=== PATIENT | female | born 1965 | race Caucasian/White ===

== ENCOUNTER 2017-01-21 18:31 | Inpatient (IN) ==
[2017-01-21] MEDS ORDERED: 0.9 % Sodium Chloride 1,000 ML IVC ONE (19:12)
[2017-01-21] MEDS ORDERED: Ondansetron 4 MG/2 ML VIAL IVP ONE (19:12)
[2017-01-21] MEDS ORDERED: Hyoscyamine 0.5 MG/ML MLS SQ ONE (19:13)
--- NOTE | 2017-01-21 19:31 | Emergency Department Note ---
Disposition Clinical Impression: Choledocholithiasis, Diastasis recti Disposition: Admitted As Inpatient Condition: Fair Time of Disposition: 00:24 Abdominal Pain HPI - General Chief Complaint: ED Abdominal Pain Stated Complaint: abd pain, nausea Time Seen by Provider: 01/21/17 19:11 Source: patient Mode of arrival: ambulatory Limitations: no limitations Nursing Notes Reviewed: Yes Vital Signs Reviewed: Yes - History of Present Illness HPI Narrative: 51-year-old Female presents to emergency department complaining of abdominal pain. She has never had any abdominal surgeries. Said today she noticed that she felt she had a hernia in the center of her belly that is worsening. For the last 2 weeks she has noticed increased bloating. She was seen 2 weeks ago at [facility] due to the bloating but she did not having the hernia at this time. She notes that she has been nauseous for the last day. She has had no vomiting. She is having bowel movements as well as passing gas. She had a normal bowel movement approximately 34 hours ago. So is nondiarrheal and there is no constipation or hard stools. There is no block. In it. Patient's had no abdominal surgeries. Patient not having any other complaints including chest pain, shortness of breath, headache, blurry vision, neck pain, back pain, pain with urination, change in bowel movements compared to the inguinal area and some generalized weakness, fevers. Pain Scale: 6 - Related Data Allergies Allergy/AdvReac Type Severity Reaction Status Date / Time Penicillins AdvReac Rash Verified 01/21/17 18:44 Review of Systems: 10 point review of systems done and negative unless otherwise stated in history of present illness. All systems ED: reviewed and negative except as stated. Review of Systems: As Per HPI Abdominal Pain PMH - Past Medical History Medical history: Reports: diabetes, hypertension Female Surgical History: Reports: no surgical history Psychiatric history: Reports: depression - Social History Smoking status: Current every day smoker Alcohol use: Reports: rarely Drug use: Reports: none Physical Exam - General Limitations: no limitations General appearance: alert, in no apparent distress - Head Head exam: atraumatic, normocephalic, normal inspection - Eye Eye exam: Present: normal appearance, PERRL, EOMI - ENT ENT exam: normal exam, normal oropharynx, mucous membranes moist - Neck Neck exam: Present: normal inspection - Chest Chest inspection: Present: normal inspection, symmetric chest wall rise - Respiratory Respiratory exam: Present: normal lung sounds bilaterally - Cardiovascular Cardiovascular exam: Present: regular rate, normal rhythm, normal heart sounds - Abdominal Exam Abdominal exam: Present: soft, tenderness, normal bowel sounds. Absent: distention, guarding, rebound, rigidity Abdominal tenderness: Present: diffuse, moderate - Extremities Exam Extremities exam: Present: normal inspection, full ROM. Absent: tenderness, pedal edema - Expanded Lower Extremity Exam Neurovascular/Tendon exam: Absent: motor deficit, sensory deficit, tendon deficit Gait: observed and normal - Back Exam Back exam: Present: normal inspection, full ROM. Absent: CVA tenderness (R), CVA tenderness (L) - Neurological Exam Neurological exam: Present: alert, oriented X3 - Skin Skin exam: Present: warm, dry, intact, normal color Course Course Narrative: 51-year-old female presents to her abdominal pain. We will do CBC, CMP, lipase , urinalysis. We will also do CT the abdomen and pelvis with contrast. Patient okay with this plan. We will give patient IV fluids as well as Levsin and Zofran for her pain and nausea. - Reevaluation(s) Reevaluation #1: Patient reevaluated and is having pain we will give her Dilaudid as well as Ativan for her anxiety. Patient's this plan. Her CT did come back showing calcified gallbladder as well as adnexal masses bilaterally. We will get a transvaginal ultrasound for possible ovarian torsion as well as all bladder study for possible acute cholecystitis. Or hydrops gallbladder. Vital Signs Temperature 98.3 F 01/21/17 18:39 Pulse Rate 91 01/21/17 18:39 Respiratory Rate 16 01/21/17 18:39 Blood Pressure 132/88 01/21/17 18:39 O2 Sat by Pulse Oximetry 97 01/21/17 18:39 Temperature 97.6 F 01/22/17 04:03 Pulse Rate 65 01/22/17 04:03 Respiratory Rate 14 01/22/17 04:03 Blood Pressure 91/64 01/22/17 04:03 O2 Sat by Pulse Oximetry 93 01/22/17 04:03 Oxygen Delivery Oxygen Delivery Room Air Abdominal Pain - [facility] Narrative Medical decision making narrative: 51-year-old female presents to the emergency department complaining of abdominal pain. She was thing that she had a hernia after evaluating this this looks more like a diastases. We did do CT her abdomen belly this came back showing calcified gallbladder as well as bilateral adnexal masses. We did get a ultrasound transvaginally the pelvis showed ovarian cyst. We also got ultrasound of the gallbladder. This showed a 1.6 cm most likely impacted gallstone in the neck of the gallbladder. Due to patient's pain which we are treating with Levsin and Dilaudid as well as impacted stone we filled GI consult as well as possible surgical consult was needed so patient is going to be admitted to the hospital. I spoke with the hospital Dr. Jordan agreed to admit the patient to their service. This plan was discussed with the patient and she agrees with this. Patient is now admitted to the hospitalist service in stable condition. Abdomen/Pelvis CT 01/21/17 19:13 IMPRESSION: 1. Diffuse fatty infiltration of the liver but no focal disease. Partly calcified gallbladder wall but no evidence of cholelithiasis or acute cholecystitis. 2. Normal appendix. 3. Bilateral adnexal cysts as described above. D/ / 01/21/2017 20:52:36 Ainsley Bauer MD / bee Interpreting Provider: Ainsley Bauer MD Abdomen/Pelvis/Transvag US 01/21/17 21:12 IMPRESSION: Unremarkable pelvic ultrasound. Normal Doppler flow within the ovaries. D/ / Nas Wright / Nas Wright Interpreting Provider: Nas Wright Gallbladder Ultrasound 01/21/17 21:12 IMPRESSION: There is a 1.65 cm gallstone in the gallbladder neck accounting for the rim calcification noted on the prior CT study. This stone may be impacted. D/ / Nicholas Zuñiga MD / Nicholas Zuñiga MD Interpreting Provider: Nicholas Zuñiga MD - Medical Records Medical records reviewed: Yes I reviewed the patient's medical records. - Lab Data Lab results reviewed: Yes I reviewed the patient's lab results. Result diagrams: 01/22/17 05:03 01/22/17 05:03 Lab Results 01/21/17 01/21/17 01/21/17 Range/Units 19:33 19:33 19:33 WBC 9.7 (4.3-11.1) K/mcL RBC 5.10 H (3.82-4.97) M/mcL Hgb 13.2 (11.5-15.4) g/dL Hct 40.2 (35.3-44.9) % MCV 78.8 L (83.0-100.0) fL MCH 25.9 L (28.0-33.3) pg MCHC 32.8 (31.6-35.5) g/dL RDW 16.6 H (11.5-14.5) % Plt Count 306 (140-400) K/mcL MPV 9.4 (9.4-12.4) fL Immature Gran % 0.6 (0-4) % Seg Neutrophils % 59.7 % Lymphocytes % 32.0 % Monocytes % 4.9 % Eosinophils % 2.4 % Basophils % 0.4 % Neutrophils # 5.8 (1.6-8.9) K/mcL Lymphocytes # 3.1 (0.6-4.6) K/mcL Monocytes # 0.5 (0.0-1.3) K/mcL Eosinophils # 0.2 (0.0-0.6) K/mcL Basophils # 0.0 (0.0-0.2) K/mcL Sodium 133 L (136-145) mEq/L Potassium 4.0 (3.5-4.5) mEq/L Chloride 101 (98-109) mEq/L Carbon Dioxide 19 (19-29) mEq/L BUN 15 (7-20) mg/dL Creatinine 0.71 (0.57-1.11) mg/dL Est GFR ( Amer) > 60 (> 60) Est GFR (Non-Af Amer) > 60 (> 60) BUN/Creatinine Ratio 21 (6-26) Glucose 217 H (70-99) mg/dL Calculated Osmolality 283 (280-300) Lactic Acid 2.1 (0.5-2.2) mmol/L Calcium 9.7 (8.6-10.8) mg/dL Total Bilirubin 0.2 (0.2-1.2) mg/dL Direct Bilirubin < 0.1 (0.0-0.5) mg/dL Indirect Bilirubin TNP AST 14 (5-34) Units/L ALT 16 (0-55) Units/L Alkaline Phosphatase 85 (38-126) Units/L Serum Total Protein 7.6 (6.0-8.3) g/dL Albumin 3.4 L (3.5-5.0) g/dL Globulin 4.2 H (2.4-3.5) g/dL Albumin/Globulin Ratio 0.8 L (1.1-2.2) Lipase 42 (8-78) Units/L Urine Color (Yellow) Urine Clarity (Clear) Urine pH (5.0-8.0) pH Units Ur Specific [place] (1.010-1.025) Urine Protein (Neg-Trace) mg/dL Urine Glucose (UA) (Normal) mg/dL Urine Ketones (Negative) mg/dL Urine Blood (Negative) Urine Nitrite (Negative) Urine Bilirubin (Negative) Urine Urobilinogen (Normal) mg/dL Ur Leukocyte Esterase (Negative) Ur Culture Indicated? (NO) 01/21/17 Range/Units 19:43 WBC (4.3-11.1) K/mcL RBC (3.82-4.97) M/mcL Hgb (11.5-15.4) g/dL Hct (35.3-44.9) % MCV (83.0-100.0) fL MCH (28.0-33.3) pg MCHC (31.6-35.5) g/dL RDW (11.5-14.5) % Plt Count (140-400) K/mcL MPV (9.4-12.4) fL Immature Gran % (0-4) % Seg Neutrophils % % Lymphocytes % % Monocytes % % Eosinophils % % Basophils % % Neutrophils # (1.6-8.9) K/mcL Lymphocytes # (0.6-4.6) K/mcL Monocytes # (0.0-1.3) K/mcL Eosinophils # (0.0-0.6) K/mcL Basophils # (0.0-0.2) K/mcL Sodium (136-145) mEq/L Potassium (3.5-4.5) mEq/L Chloride (98-109) mEq/L Carbon Dioxide (19-29) mEq/L BUN (7-20) mg/dL Creatinine (0.57-1.11) mg/dL Est GFR ( Amer) (> 60) Est GFR (Non-Af Amer) (> 60) BUN/Creatinine Ratio (6-26) Glucose (70-99) mg/dL Calculated Osmolality (280-300) Lactic Acid (0.5-2.2) mmol/L Calcium (8.6-10.8) mg/dL Total Bilirubin (0.2-1.2) mg/dL Direct Bilirubin (0.0-0.5) mg/dL Indirect Bilirubin AST (5-34) Units/L ALT (0-55) Units/L Alkaline Phosphatase (38-126) Units/L Serum Total Protein (6.0-8.3) g/dL Albumin (3.5-5.0) g/dL Globulin (2.4-3.5) g/dL Albumin/Globulin Ratio (1.1-2.2) Lipase (8-78) Units/L Urine Color Yellow (Yellow) Urine Clarity Clear (Clear) Urine pH 6.0 (5.0-8.0) pH Units Ur Specific [place] > 1.030 H (1.010-1.025) Urine Protein Negative (Neg-Trace) mg/dL Urine Glucose (UA) >=1000 H (Normal) mg/dL Urine Ketones Negative (Negative) mg/dL Urine Blood Negative (Negative) Urine Nitrite Negative (Negative) Urine Bilirubin Negative (Negative) Urine Urobilinogen Normal (Normal) mg/dL Ur Leukocyte Esterase Negative (Negative) Ur Culture Indicated? NO (NO) - Radiology Data Radiology results reviewed: Yes I reviewed the patient's radiology results. Attestation Statement - Attestation Attestation: I examined this patient and my medical decision-making was reviewed with the Resident Physician. I agree with the documented findings, disposition and treatment plan as described except to the extent set forth below. Findings consistent with possible impacted stone. We will admit for GI consultation.
[2017-01-21 19:42] LABS: Basophils % 0.4 %; Eosinophils # 0.2 K/mcL (0.0-0.6); Eosinophils % 2.4 %; Hematocrit 40.2 % (35.3-44.9); Hemoglobin 13.2 g/dL (11.5-15.4); Immature Granulocytes % 0.6 % (0-4); Lymphocytes # 3.1 K/mcL (0.6-4.6); Mean Corpuscular HGB Conc 32.8 g/dL (31.6-35.5); Mean Corpuscular Hemoglobin 25.9 pg (28.0-33.3); Mean Corpuscular Volume 78.8 fL (83.0-100.0); Mean Platelet Volume 9.4 fL (9.4-12.4); Monocytes # 0.5 K/mcL (0.0-1.3); Monocytes % 4.9 %; Neutrophils # 5.8 K/mcL (1.6-8.9); Platelet Count 306 K/mcL (140-400); Red Cell Distribution Width 16.6 % (11.5-14.5); Segmented Neutrophils % 59.7 %
[2017-01-21 19:55] LABS: Bilirubin,Urine Negative (Negative); Blood,Urine Negative (Negative); Clarity,Urine Clear (Clear); Color,Urine Yellow (Yellow); Glucose,Urine (UA) >=1000 mg/dL (Normal); Ketones,Urine Negative (Negative); Leukocyte Esterase,Urine Negative (Negative); Nitrite,Urine Negative (Negative); Protein,Urine Negative (Neg-Trace); Specific Gravity,Urine > 1.030 (1.010-1.025); Urobilinogen,Urine Normal (Normal)
[2017-01-21 19:56] LABS: Alanine Aminotransferase 16 Units/L (0-55); Albumin 3.4 g/dL (3.5-5.0); Albumin/Globulin Ratio 0.8 (1.1-2.2); Alkaline Phosphatase 85 Units/L (38-126); Aspartate Amino Transferase 14 Units/L (5-34); BUN/Creatinine Ratio 21 (6-26); Bilirubin,Direct < 0.1 mg/dL (0.0-0.5); Bilirubin,Total 0.2 mg/dL (0.2-1.2); Blood Urea Nitrogen 15 mg/dL (7-20); Calcium 9.7 mg/dL (8.6-10.8); Carbon Dioxide 19 mEq/L (19-29); Chloride 101 mEq/L (98-109); Globulin 4.2 g/dL (2.4-3.5); Glucose 217 mg/dL (70-99); Lipase 42 Units/L (8-78); Osmolality,Calculated 283 (280-300); Sodium 133 mEq/L (136-145); Total Protein 7.6 g/dL (6.0-8.3); eGFR For African Americans > 60 (> 60); eGFR For Non-African Americans > 60 (> 60)
[2017-01-21] MEDS ORDERED: *HR* LORazepam 2 MG/ML VIAL IVP ONE (20:48)
[2017-01-21] MEDS ORDERED: *HR* HYDROmorphone (PF) 1 MG/ML SYRINGE IVP ONE (20:48)
[2017-01-22] MEDS ORDERED: D5% in Water 1,000 ML IVC PRN ×3 (00:34→18:44)
[2017-01-22] MEDS ORDERED: Dextrose Gel 15 GM PO PRN ×4 (00:34→18:44)
[2017-01-22] MEDS ORDERED: Naloxone 0.4 MG/ML INJ IVP PRN ×2 (00:34→18:44)
[2017-01-22] MEDS ORDERED: *HR* Dextrose 50 % in Water (Syg) 50 ML SYRINGE IVP PRN ×2 (00:34→18:44)
--- NOTE | 2017-01-22 00:43 | Internal Med History&Physical ---
Date of Encounter: 01/22/17 Time of Encounter: 00:40 Assessment and Plan (1) Cholelithiasis Current visit: Yes Status: Acute NPO , IVf, IV pain med Consult surgery in the a.m for eval check LFT check EKG Qualifiers: Qualified Code(s): K80.20 - Calculus of gallbladder without cholecystitis without obstruction (2) HTN (hypertension) Current visit: Yes Status: Acute continue med Qualifiers: Qualified Code(s): I10 - Essential (primary) hypertension (3) DMII (diabetes mellitus, type 2) Current visit: Yes Status: Acute hold oral agents, ISS for now Qualifiers: Diabetes mellitus complication status: without complication Qualified Code( s): E11.9 - Type 2 diabetes mellitus without complications (4) Choledocholithiasis Current visit: Yes Status: Acute Internal Medicine - H&P: HPI Chief complaint: abdo pain History of present illness: Ms. Loomis is a 51 year old female who presents with acute on subacute onset of abdominal symptoms. Found impacted gallstones in the GB neck. She reports several months of non-specific bloating symptoms associated with intermittent nausea and feeling ill. She went to [place] [facility] at that time and had a negative CT imaging. Today, symptoms got worse. She got out of bed and was bending over doing laundry which aggravated the pain. Associated nausea and some emesis. She had a small bowl of chilli which she tolerated for dinner. Discomfort along the epigastric region , rates it as a burning, like a band tightness 6/10. Some associated nausea US/US gall bladder IMPRESSION: There is a 1.65 cm gallstone in the gallbladder neck accounting for the rim calcification noted on the prior CT study. This stone may be impacted. US/US pelvis transvag dopp non ob IMPRESSION: Unremarkable pelvic ultrasound. Normal Doppler flow within the ovaries. CT/CT abd pelvis w iv no oral IMPRESSION: 1. Diffuse fatty infiltration of the liver but no focal disease. Partly calcified gallbladder wall but no evidence of cholelithiasis or acute cholecystitis. 2. Normal appendix. 3. Bilateral adnexal cysts as described above. Past Med Surg Social Fam HX - Past Medical History Medical history: diabetes, hypertension Psychiatric history: depression - Past Surgical History Surgical History: no surgical history - Social History Smoking Status: Current every day smoker Smokeless Tobacco Status: No Alcohol use: rarely Drug use: none - Additional Family History Additional family history: HTN Internal Medicine - H&P: Meds 3 Allergy/AdvReac Type Severity Reaction Status Date / Time Penicillins AdvReac Rash Verified 01/21/17 18:44 All Systems PM: A 10-system review of systems was performed and is negative for pertinent findings except as documented above in the HPI. Review of systems: ROS 14 point review of systems reviewed as best as possible given presentation. Pertinent positive or negative as per HPI or otherwise reviewed as negative - Constitutional Vitals: Temp Pulse Resp BP Pulse Ox 98.3 F 89 12 130/63 95 01/21/17 18:39 01/21/17 22:57 01/21/17 22:57 01/21/17 22:57 01/21/17 22:57 Exam: General - AAO x 3 Psych - Appropriate affect/speech. No agitation Eyes - CHRISTOFER. Eye lids intact. No scleral icterus Neuro - No gross peripheral or central neuro deficits with intact CN 2-12 exam on inspection Heart - Sinus. RRR. S1 and S2 present. No added HS/murmurs appreciated. No elevated JVD appreciated. Lung - Adequate air entry b/l, No crackles/wheezes appreciated GI - Epigastric tenderness. No hepatosplenomegaly/ascites. BS+ - No CVA/suprapubic tenderness or palpable bladder distension Skin - Intact. No rash/petechiae/ecchymosis. Warm extremities MSK - Joints with normal ROM. No joint swellings Internal Med - H&P Results - Labs CBC & Chem 7: 01/21/17 19:33 01/21/17 19:33
[2017-01-22] MEDS: Ringers Solution, Lactated 1,000 ML IVC SCH ×2 (01:49→11:06)
[2017-01-22] MEDS: Ondansetron 4 MG/2 ML VIAL IVP PRN ×2 (01:49→11:16)
[2017-01-22] MEDS: *HR* HYDROmorphone (PF) 1 MG/ML SYRINGE IVP PRN ×6 (02:18→22:11)
[2017-01-22 05:50] LABS: Basophils % 0.4 %; Eosinophils # 0.2 K/mcL (0.0-0.6); Eosinophils % 2.9 %; Hematocrit 39.1 % (35.3-44.9); Hemoglobin 12.3 g/dL (11.5-15.4); Immature Granulocytes % 0.5 % (0-4); Lymphocytes # 3.3 K/mcL (0.6-4.6); Lymphocytes % 41.3 %; Mean Corpuscular HGB Conc 31.5 g/dL (31.6-35.5); Mean Corpuscular Hemoglobin 24.9 pg (28.0-33.3); Mean Corpuscular Volume 79.1 fL (83.0-100.0); Mean Platelet Volume 9.4 fL (9.4-12.4); Monocytes # 0.4 K/mcL (0.0-1.3); Monocytes % 5.5 %; Platelet Count 310 K/mcL (140-400); Red Blood Count 4.94 M/mcL (3.82-4.97); Red Cell Distribution Width 16.7 % (11.5-14.5); Segmented Neutrophils % 49.4 %
[2017-01-22 05:52] LABS: INR 0.9; Prothrombin Time 9.9 Seconds (9.4-12.1)
[2017-01-22] MEDS ORDERED: *HR* Enoxaparin 40 MG/0.4 ML SYRINGE SQ SCH (06:00)
[2017-01-22 06:11] LABS: Alanine Aminotransferase 17 Units/L (0-55); Albumin 2.9 g/dL (3.5-5.0); Albumin/Globulin Ratio 0.8 (1.1-2.2); Alkaline Phosphatase 78 Units/L (38-126); Aspartate Amino Transferase 13 Units/L (5-34); BUN/Creatinine Ratio 19 (6-26); Bilirubin,Total 0.2 mg/dL (0.2-1.2); Blood Urea Nitrogen 11 mg/dL (7-20); Calcium 8.7 mg/dL (8.6-10.8); Carbon Dioxide 23 mEq/L (19-29); Chloride 104 mEq/L (98-109); Globulin 3.8 g/dL (2.4-3.5); Glucose 179 mg/dL (70-99); Osmolality,Calculated 286 (280-300); Potassium 3.7 mEq/L (3.5-4.5); Total Protein 6.7 g/dL (6.0-8.3); eGFR For African Americans > 60 (> 60); eGFR For Non-African Americans > 60 (> 60)
[2017-01-22] MEDS: Insulin LISPRO 300 UNITS/3 ML VIAL SQ SCH ×2 (06:11→13:14)
[2017-01-22 06:12] LABS: Bilirubin,Direct < 0.1 mg/dL (0.0-0.5); Sodium 136 mEq/L (136-145)
[2017-01-22] MEDS ORDERED: Insulin LISPRO 300 UNITS/3 ML VIAL SQ SCH ×2 (07:30→21:00)
--- NOTE | 2017-01-22 08:50 | Event Note ---
Date of Encounter: 01/22/17 Time of Encounter: 08:49 51 year old female with h/o- HTN and DM, presents with 1 month h/o- on and off dyspepsia and bloating and vague abdominal pain, suddenly worse since last night ; pain is in central abdomen, radiating to RUQ, associated with nausea and feeling ill; Patient seen and examined at bedside; Chest- S1, S2 heard; abdomen soft and nontender at the time of my exam; Labs reviewed; RUQ U/S showed a single 1.65cm gallstone impacted in the neck of gall bladder; Biliary colic, likely related to gallstones: continue supportive care with bowel rest, IV hydration, pain control with PRN IV Dilaudid, PRN antiemetics; Surgery consulted; possible cholecystectomy;
[2017-01-22] MEDS ORDERED: hydroCHLOROthiazide 25 MG TABLET PO SCH (09:00)
--- NOTE | 2017-01-22 09:10 | General Surgery Consult Note ---
<GabrielKathi Julian - Last Filed: 01/22/17 12:59> Date of Encounter: 01/22/17 Time of Encounter: 09:10 Assessment and Plan (1) Choledocholithiasis Current Visit: Yes Status: Acute 1.65 cm gallstone noted in the neck of the gallbladder per ultrasound. No evidence of acute cholecystitis. Her HPI and exam are consistent with a gallstone as opposed to cholecystitis. We will plan for surgical intervention in the next 24-48 hours. Recommendations of laproscopic cholecystectomy, benefits, and risks associated reviewed with patient and she is agreeeable to proceed. Signed consent placed on the hard chart. NPO Scheduled duonebs in preop setting Cefoxitin sole conditioner to OR (2) Diastasis recti Current Visit: Yes Status: Acute (3) HTN (hypertension) Current Visit: Yes Status: Chronic Qualifiers: Hypertension type: essential hypertension Qualified Code(s): I10 - Essential (primary) hypertension (4) DMII (diabetes mellitus, type 2) Current Visit: Yes Status: Acute Qualifiers: Diabetes mellitus complication status: without complication Diabetes mellitus usp insulin use: without computer terminal operator use Qualified Code(s): E11.9 - Type 2 diabetes mellitus without complications History of Present Illness Consult date: 01/22/17 (Dr. Lou Day) Reason for consult: abdominal pain Requesting physician: Milla Mays (Rickie Rios) History of present illness: Martha is a pleasant 51-year-old female with a past medical history of hypertension, type II diabetes, diabetic neuropathy, smoking history of one pack per day for 25 years, depression, and a surgical history of the [facility] in 2003. She denies alcohol or illicit drug use. Surgery has been asked to evaluate this patient for abdominal pain. Per documentation review, she presented on 01/21/2017 for complaints of abdominal pain and she had a feeling of a hernia around her belly button. She noted that she was seen 2 weeks ago at [facility] due to the loading but she did not have the feelings of a hernia at that time. She reports she had been nauseated for one day, denied vomiting, constipation, diarrhea, or changes in bowel habits. A CT of the abdomen and pelvis with ITV and no oral contrast was completed which revealed diffuse fatty infiltration of the liver, partially calcified gallbladder with no evidence of cholelithiasis or acute cholecystitis , a normal appendix, and bilateral adnexal cysts. A transvaginal ultrasound was completed which was unremarkable. An ultrasound of the gallbladder was completed which revealed a 1.65 cm gallstone in the gallbladder neck accounting for the rim calcification noted up in prior CT. It is felt that the stone may be impacted. The common bile duct is 8 mm, and there is a negative sonographic Edward sign. Her white blood cell count, LFTs, lipase, and bilirubin are unremarkable. Per patient interview, she confirms the past medical history detailed above and clarifies her HPI as follows: she reports approximately a two-month intermittent episode of dull abdominal discomfort in the epigastric and right upper quadrant region associated with feelings of bloated and occasional nausea. She is unable to associate the discomfort with eating or eating specific foods, but rather states that the "flareups" seem to be intermittent and not associated. She reports that when she has this discomfort and bloating she has a decreased appetite. She does note that approximately 2 weeks ago she was bending over doing laundry and felt a feeling of a bulge in her middle abdomen. She denies discomfort associated. She denies a history of hernia. She denies fevers, headaches, syncope, near syncope, chest pain, shortness of breath, generalized weakness, changes in bowel habits, constipation, diarrhea, or a history/family history of cancer. She has never had an EGD or colonoscopy. She endorses abdominal discomfort, nausea, and a history of diabetic neuropathy as detailed above. Past Med Surg Social Fam HX - Past Medical History Source: patient, old records reviewed Medical history: diabetes, hypertension, other (Diabetic neuropathy) Psychiatric history: depression - Past Surgical History Surgical History: other ([facility] 2003) - Social History Smoking Status: Current every day smoker Packs per day: 1 25 years Smokeless Tobacco Status: No Alcohol use: rarely Drug use: none Occupational status: employed (RN) Current living situation: Home - Independent Activity Level: Independent ambulation Recent Out of Country Travel Within the Last 8 Weeks: No Exposure or Possible Exposure to Illness During Travel: No - Family History Mother Hx Family Cardiac Disorders: Yes (AFIB) Medications and Allergies Atorvastatin [Lipitor] 40 mg PO HS 01/22/17 [History] Glimepiride [Amaryl] 4 mg PO BID 01/22/17 [History] LORazepam [Ativan] 0.5 mg PO DAILY PRN 12/18/17 [History] Lisinopril-HCTZ 20-12.5 [Prinzide 20-12.5] 1 each PO DAILY 01/22/17 [History] Sertraline [Zoloft] 100 mg PO DAILY 01/22/17 [History] metFORMIN [Glucophage] 1,000 mg PO BIDWM 01/22/17 [History] 3 Allergy/AdvReac Type Severity Reaction Status Date / Time Penicillins AdvReac Rash Verified 01/21/17 18:44 Review of Systems All systems PM: reviewed and no additional remarkable complaints except as stated All systems PM: A 10-system review of systems was performed and is negative for pertinent findings except as documented above in the HPI. General Surgery Exam Initial Vital Signs Temp Pulse Resp BP Pulse Ox 98.3 F 91 16 132/88 97 01/21/17 18:39 01/21/17 18:39 01/21/17 18:39 01/21/17 18:39 01/21/17 18:39 - Additional Findings VITAL SIGNS: Reviewed. Stable GENERAL: In no apparent distress. HEENT: Atraumatic, normocephalic, normal occular movements, hearing grossly intact. Oropharynx WNL NECK: No adenopathy, no JVD. CHEST: Chest with clear breath sounds bilaterally. No wheezes, rales, or rhonchi. CARDIAC: Regular rate and rhythm. S1 and S2, without murmurs, gallops, or rubs. VASCULAR: No Edema. Peripheral pulses normal and equal in all extremities. ABDOMEN: No signs of trauma or bleeding noted. Bowel sounds are active in all 4 quadrants. Soft, mildly tender in the right upper quadrant. No evidence of a hernia noted. MUSCULOSKELETAL: No focal deficits noted. NEUROLOGIC EXAM: Alert and oriented x 3. No focal sensory or strength deficits. Speech normal. Follows commands. PSYCHIATRIC: Pleasant affect. Mood normal. SKIN: No rash or lesions. Exam Initial Vital Signs Temp Pulse Resp BP Pulse Ox 98.3 F 91 16 132/88 97 01/21/17 18:39 01/21/17 18:39 01/21/17 18:39 01/21/17 18:39 01/21/17 18:39 Results - Labs 01/22/17 05:03 01/22/17 05:03 Abnormal lab results MCV 79.1 fL (83.0-100.0) L 01/22/17 05:03 MCH 24.9 pg (28.0-33.3) L 01/22/17 05:03 MCHC 31.5 g/dL (31.6-35.5) L 01/22/17 05:03 RDW 16.7 % (11.5-14.5) H 01/22/17 05:03 Glucose 179 mg/dL (70-99) H 01/22/17 05:03 Albumin 2.9 g/dL (3.5-5.0) L 01/22/17 05:03 Globulin 3.8 g/dL (2.4-3.5) H 01/22/17 05:03 Albumin/Globulin Ratio 0.8 (1.1-2.2) L 01/22/17 05:03 Ur Specific Leander > 1.030 (1.010-1.025) H 01/21/17 19:43 Urine Glucose (UA) >=1000 mg/dL (Normal) H 01/21/17 19:43 Diabetes panel 01/22/17 Range/Units 05:03 Sodium 136 (136-145) mEq/L Potassium 3.7 (3.5-4.5) mEq/L Chloride 104 (98-109) mEq/L Carbon Dioxide 23 (19-29) mEq/L BUN 11 (7-20) mg/dL Creatinine 0.58 (0.57-1.11) mg/dL Glucose 179 H (70-99) mg/dL Calcium 8.7 (8.6-10.8) mg/dL AST 13 (5-34) Units/L ALT 17 (0-55) Units/L Alkaline Phosphatase 78 (38-126) Units/L Albumin 2.9 L (3.5-5.0) g/dL Calcium panel 01/22/17 Range/Units 05:03 Calcium 8.7 (8.6-10.8) mg/dL Albumin 2.9 L (3.5-5.0) g/dL Pituitary panel 01/22/17 Range/Units 05:03 Sodium 136 (136-145) mEq/L Potassium 3.7 (3.5-4.5) mEq/L Chloride 104 (98-109) mEq/L Carbon Dioxide 23 (19-29) mEq/L BUN 11 (7-20) mg/dL Creatinine 0.58 (0.57-1.11) mg/dL Glucose 179 H (70-99) mg/dL Calcium 8.7 (8.6-10.8) mg/dL Adrenal panel 01/22/17 Range/Units 05:03 Sodium 136 (136-145) mEq/L Potassium 3.7 (3.5-4.5) mEq/L Chloride 104 (98-109) mEq/L Carbon Dioxide 23 (19-29) mEq/L BUN 11 (7-20) mg/dL Creatinine 0.58 (0.57-1.11) mg/dL Glucose 179 H (70-99) mg/dL Calcium 8.7 (8.6-10.8) mg/dL Total Bilirubin 0.2 (0.2-1.2) mg/dL AST 13 (5-34) Units/L ALT 17 (0-55) Units/L Alkaline Phosphatase 78 (38-126) Units/L Albumin 2.9 L (3.5-5.0) g/dL All other labs normal. - Imaging CT scan - abdomen: report reviewed CT scan - pelvis: report reviewed US - abdomen: report reviewed US - pelvic: report reviewed Additional studies: Abdomen/Pelvis CT 01/21/17 19:13 IMPRESSION: 1. Diffuse fatty infiltration of the liver but no focal disease. Partly calcified gallbladder wall but no evidence of cholelithiasis or acute cholecystitis. 2. Normal appendix. 3. Bilateral adnexal cysts as described above. D/ / 01/21/2017 20:52:36 Ainsley Bauer MD / bee Interpreting Provider: Ainsley Bauer MD Abdomen/Pelvis/Transvag US 01/21/17 21:12 IMPRESSION: Unremarkable pelvic ultrasound. Normal Doppler flow within the ovaries. D/ / Nas Wright / Nas Wright Interpreting Provider: Nas Wright Gallbladder Ultrasound 01/21/17 21:12 IMPRESSION: There is a 1.65 cm gallstone in the gallbladder neck accounting for the rim calcification noted on the prior CT study. This stone may be impacted. D/ / Nicholas Zuñiga MD / Nicholas Zuñiga MD Interpreting Provider: Nicholas Zuñiga MD Consult Discharge Plan - Plan Referrals: Cecile Vivar, DO [Primary Care Provider] - <Lou aDy - Last Filed: 01/22/17 16:17> Date of Encounter: 01/22/17 Time of Encounter: 16:00 Assessment and Plan (1) Symptomatic cholelithiasis Current Visit: Yes Status: Acute discussed with patient her symptoms, labs and imaging are consistent with symptomatic cholelithaisis, will plan laparoscopic cholecystectomy, possible cholangiograms possible open, risks and benefits discussed and she wishes to proceed. npo ivf hydration prn pain control prn antiemetics gi/dvt prophylaxis oob and ambulate (2) DMII (diabetes mellitus, type 2) Current Visit: Yes Status: Acute managment per medicine Qualifiers: Diabetes mellitus complication status: without complication Diabetes mellitus computer terminal operator insulin use: without usp use Qualified Code(s): E11.9 - Type 2 diabetes mellitus without complications (3) Diastasis recti Current Visit: Yes Status: Chronic discussed with patient that she has a diastasis recti and that this is not a true hernia and does not require surgical repair (4) HTN (hypertension) Current Visit: Yes Status: Chronic patient actually a little hypotensive, monitor Qualifiers: Hypertension type: essential hypertension Qualified Code(s): I10 - Essential (primary) hypertension History of Present Illness History of present illness: Patient is complaining of RUQ pain and nausea and vomiting that has been occuring intermittently since 1 month ago. She denies diarrhea associated with these episodes. She also has a lot of fullness and bloating in the upper abdomen. She thought she had a hernia and presented to [facility] due to thinking her symptoms were due to a hernia. She started having a lot of RUQ pain - sharp/squeezing since sunday. She was having a lot of heartburn and reflux symptoms several weeks ago and she started taking OTC prilosec which has controlled her symptoms and she doesnt feel like these two things are related. She denies any association with food. No fevers, chills or night sweats. CT showed no hernia. US gallbladder with 1.65 cm stone and no pericholecystic fluid , no wall thickening, and cbd 8 mm but lft's are all wnl and wbc normal as well. Past Med Surg Social Fam HX - Past Medical History Medical history: diabetes, hyperlipidemia, hypertension Psychiatric history: anxiety, depression - Past Surgical History Surgical History: other Review of Systems All systems PM: reviewed and no additional remarkable complaints except as stated All systems PM: A 10-system review of systems was performed and is negative for pertinent findings except as documented above in the HPI. General Surgery Exam Initial Vital Signs Temp Pulse Resp BP Pulse Ox 98.3 F 91 16 132/88 97 01/21/17 18:39 01/21/17 18:39 01/21/17 18:39 01/21/17 18:39 01/21/17 18:39 - General physical appearance well developed, well nourished, no distress - Eyes PERRL, normal ocular movement - ENT normal mucosa, normocephalic - Neck no masses - Respiratory normal expansion, normal respiratory effort - Cardiovascular Cardiovascular exam: Present: RRR - Abdomen Abdomen general surgery: Present: soft, tender. Absent: distended, guarding, rebound Abdominal Tenderness: Present: RUQ - Integumentary Integumentary general surgery: Present: warm and dry, no abnormal pigmentation - Neurologic Present: CN 2-12 grossly intact - Musculoskeletal Present: normal gait, normal posture - Psychiatric Psychiatric general surgery: Present: A&Ox3, speech is normal Exam Initial Vital Signs Temp Pulse Resp BP Pulse Ox 98.3 F 91 16 132/88 97 01/21/17 18:39 01/21/17 18:39 01/21/17 18:39 01/21/17 18:39 01/21/17 18:39 Results - Labs 01/22/17 05:03 01/22/17 05:03 Abnormal lab results MCV 79.1 fL (83.0-100.0) L 01/22/17 05:03 MCH 24.9 pg (28.0-33.3) L 01/22/17 05:03 MCHC 31.5 g/dL (31.6-35.5) L 01/22/17 05:03 RDW 16.7 % (11.5-14.5) H 01/22/17 05:03 Glucose 179 mg/dL (70-99) H 01/22/17 05:03 POC Glucose 193 (58-89) H 01/22/17 11:25 Albumin 2.9 g/dL (3.5-5.0) L 01/22/17 05:03 Globulin 3.8 g/dL (2.4-3.5) H 01/22/17 05:03 Albumin/Globulin Ratio 0.8 (1.1-2.2) L 01/22/17 05:03 Ur Specific Leander > 1.030 (1.010-1.025) H 01/21/17 19:43 Urine Glucose (UA) >=1000 mg/dL (Normal) H 01/21/17 19:43 Diabetes panel 01/22/17 Range/Units 05:03 Sodium 136 (136-145) mEq/L Potassium 3.7 (3.5-4.5) mEq/L Chloride 104 (98-109) mEq/L Carbon Dioxide 23 (19-29) mEq/L BUN 11 (7-20) mg/dL Creatinine 0.58 (0.57-1.11) mg/dL Glucose 179 H (70-99) mg/dL Calcium 8.7 (8.6-10.8) mg/dL AST 13 (5-34) Units/L ALT 17 (0-55) Units/L Alkaline Phosphatase 78 (38-126) Units/L Albumin 2.9 L (3.5-5.0) g/dL Calcium panel 01/22/17 Range/Units 05:03 Calcium 8.7 (8.6-10.8) mg/dL Albumin 2.9 L (3.5-5.0) g/dL Pituitary panel 01/22/17 Range/Units 05:03 Sodium 136 (136-145) mEq/L Potassium 3.7 (3.5-4.5) mEq/L Chloride 104 (98-109) mEq/L Carbon Dioxide 23 (19-29) mEq/L BUN 11 (7-20) mg/dL Creatinine 0.58 (0.57-1.11) mg/dL Glucose 179 H (70-99) mg/dL Calcium 8.7 (8.6-10.8) mg/dL Adrenal panel 01/22/17 Range/Units 05:03 Sodium 136 (136-145) mEq/L Potassium 3.7 (3.5-4.5) mEq/L Chloride 104 (98-109) mEq/L Carbon Dioxide 23 (19-29) mEq/L BUN 11 (7-20) mg/dL Creatinine 0.58 (0.57-1.11) mg/dL Glucose 179 H (70-99) mg/dL Calcium 8.7 (8.6-10.8) mg/dL Total Bilirubin 0.2 (0.2-1.2) mg/dL AST 13 (5-34) Units/L ALT 17 (0-55) Units/L Alkaline Phosphatase 78 (38-126) Units/L Albumin 2.9 L (3.5-5.0) g/dL All other labs normal. - Imaging CT scan - abdomen: report reviewed, image reviewed CT scan - pelvis: report reviewed, image reviewed US - abdomen: report reviewed - Attending Attestation I have personally performed a face to face evaluation on this patient. I have reviewed and agree with the care plan. History and Exam by me shows:symptomatic cholelithiasis
[2017-01-22] MEDS ORDERED: *HR* LORazepam 0.5 MG TABLET PO PRN ×2 (10:17→18:44)
[2017-01-22] MEDS ORDERED: 0.9 % Sodium Chloride 1,000 ML IVC SCH (13:15)
--- NOTE | 2017-01-22 15:16 | Anesthesia Evaluation PreOp ---
Date of Encounter: 01/22/17 Time of Encounter: 15:14 - Past History Planned Operation: lap. Olga. Cardiac History: HTN Pulmonary History: Smoker SCORER SINGLE History: Other (Diabetic Neuropathy, Depression) Other Medical History: Diabetes Type II Anesthesia History: No Prior Anesthetic Complications, Past Anesthesia (D&C) : No Test: Negative (01/22/2017) Alcohol Use: rarely Drug use: none Medications and Allergies Atorvastatin [Lipitor] 40 mg PO HS 01/22/17 [History] Glimepiride [Amaryl] 4 mg PO BID 01/22/17 [History] LORazepam [Ativan] 0.5 mg PO DAILY PRN 01/22/17 [History] Lisinopril-HCTZ 20-12.5 [Prinzide 20-12.5] 1 each PO DAILY 01/22/17 [History] Sertraline [Zoloft] 100 mg PO DAILY 01/22/17 [History] metFORMIN [Glucophage] 1,000 mg PO BIDWM 01/22/17 [History] 3 Allergy/AdvReac Type Severity Reaction Status Date / Time Penicillins AdvReac Rash Verified 01/21/17 18:44 - Meds/Allergy Pre-op Review Medications Reviewed: Yes Allergies Reviewed: Yes Beta Blockers on Current Med List: No Anesthesia Results - Labs 01/22/17 05:03 01/22/17 05:03 Anesthesia Exam O2 Sat Height 1.65 m Height 1.65 m Weight 87.226 kg Weight 87.226 kg Weight 86.183 kg O2 Sat by Pulse Oximetry 96 O2 Sat by Pulse Oximetry 97 O2 Sat by Pulse Oximetry 96 O2 Sat by Pulse Oximetry 93 O2 Sat by Pulse Oximetry 95 O2 Sat by Pulse Oximetry 95 O2 Sat by Pulse Oximetry 99 O2 Sat by Pulse Oximetry 97 Vital Signs Temp Pulse Resp BP Pulse Ox 98.3 F 91 16 132/88 97 01/21/17 18:39 01/21/17 18:39 01/21/17 18:39 01/21/17 18:39 01/21/17 18:39 Vital Signs/O2 Sat, Most Current Temp Pulse Resp BP Pulse Ox 97.9 F 65 16 91/61 96 01/22/17 14:21 01/22/17 14:21 01/22/17 14:21 01/22/17 14:01/22/17 14:21 Height: 5'5'' Weight: 192# NPO (# of Hours): > 8 hrs Pain Scale: 0 Pain Scale Used: Numeric (1 - 10) - HEENT Pupil (Motor): Pupils equal, EOMI Mallampati: III Teeth: Missing Oral Opening: Greater than 3 - SCORER SINGLE LOC: Oriented SCORER SINGLE Motor: Normal RUE, Normal LUE, Normal RLE, Normal LLE, Normal Face SCORER SINGLE Sensory: Normal: RUE, LUE, RLE, LLE, Face - Cardiac Rhythm: Regular Murmur: None JVD: No Carotid Bruit: No - Pulmonary Breath Sounds: bilateral Clear Respiratory Effort: Symmetrical Anesthesia Assess/Plan ASA Score: 3 Modified Wiliam Scale for Level of Consciousness: Cooperative, oriented, and tranquil Anesthetic Plan: General Autologous Blood: Yes Monitoring Plan: Standard Monitors Recovery Plan: PACU
[2017-01-22] MEDS ORDERED: *HR* HYDROmorphone 2 MG/ML SYRINGE ONE ×2 (15:47→16:59)
[2017-01-22] MEDS ORDERED: Lidocaine -MPF 4% 5 ML AMPUL ONE (15:59)
[2017-01-22] MEDS ORDERED: *HR* FentaNYL (PF) 100 MCG/2 ML VIAL ONE (16:00)
[2017-01-22] MEDS ORDERED: Ipratropium/Albuterol Neb 3 ML IH SCH (16:00)
[2017-01-22] MEDS ORDERED: *HR* Propofol 200 MG/20 ML VIAL IVP ONE (16:00)
[2017-01-22] MEDS ORDERED: *HR* Midazolam HCl 2 MG/2 ML VIAL ONE (16:00)
[2017-01-22] MEDS ORDERED: *HR* Rocuronium Bromide 50 MG/5 ML VIAL ONE (16:01)
[2017-01-22] MEDS ORDERED: *HR* Succinylcholine 200 MG/10 ML VIAL IVP ONE (16:01)
[2017-01-22] MEDS ORDERED: Lidocaine -MPF 2% 2 ML VIAL ONE (16:01)
[2017-01-22] MEDS ORDERED: Clindamycin 900 MG/50 ML 900 MG/50 ML IV.SOLN IVPB ONE (16:13)
[2017-01-22] MEDS ORDERED: Dexamethasone 4 MG/ML VIAL ONE (16:32)
[2017-01-22] MEDS ORDERED: Ondansetron 4 MG/2 ML VIAL ONE (16:32)
[2017-01-22] MEDS ORDERED: EPHEDrine 50 MG/ML VIAL ONE (16:33)
[2017-01-22] MEDS ORDERED: Neostigmine Methylsulfate 3 MG/3 ML SYRINGE ONE (16:38)
[2017-01-22] MEDS ORDERED: *HR* Promethazine 25 MG/ML VIAL IVP PRN ×2 (16:55→18:44)
--- NOTE | 2017-01-22 17:29 | Operative Note ---
Date of procedure: 01/22/17 Pre-op diagnosis: symptomatic cholelithiasis Post-op diagnosis: other (acute cholecystitis with hydrops) Procedure: Laparoscopic cholecystectomy Complications: none immediate Anesthesia: GETA, local Local Anesthetics: 0.5% Sensorcaine HCL SubQ (cc) (30) Surgeon: Lou Day Esthetician Makeup Artist: Lilian Titus Tourniquet Time (Minutes): 20 Specimen: gallbladder Condition: stable Disposition: PACU Procedure in Detail: The patient was brought into the operating suite and placed supine on the operating table. Sign-in was performed and everyone was in agreement. Anesthesia was induced and patient was endotracheally intubated by anesthesia without incident and they also placed an OG tube. The abdomen was prepped and draped in the usual sterile fashion. A timeout was performed again everyone was in agreement. A supraumbilical incision was made through the skin into the subcutaneous tissue with an 11 blade. Towel clamps were placed on either side of the umbilicus for retraction. S retractors were used to dissect down to the anterior abdominal wall linea alba fascia. A Veress needle was placed through this incision and a water drop test confirmed placement and the abdomen was insufflated. The abdomen was entered with a 5 mm 0 degree laparoscope on a 5 mm X-demarucs trocar. The area and entry was visualized was no bleeding and no apparent bowel injury. A 5 mm subxiphoid port was placed under direct visualization after first incising the skin with an 11 blade. A right upper quadrant subcostal position midclavicular line 5 mm port was placed under direct visualization after first incising skin with 11 blade. The laparoscope was placed in this and we exchanged the supraumbilical port for a 12 mm port under direct visualization. The last 5 mm port was placed in the right upper quadrant subcostal position anterior axillary line after first incising the skin with an 11 blade. The patient was placed in steep reverse Trendelenburg left side down position. The dome of the gallbladder tense and unable to be grasped. The gallbladder was aspirated with the laparoscopic aspirator and hydrops was evident, then the gallbladder was grasped and retracted cephalad. Omental adhesions to the body and infundibulum of the gallbladder were taken down bluntly with the [place]. The infundibulum was unable to be grasped due to a large impacted stone, the gallbladder body above the impacted stones was grasped and retracted laterally. Using the right heated right angle the peritoneum medially and laterally along the gallbladder was opened. Using the [place] we dissected out the cystic duct and cystic artery. Two 5 mm hemoclips were placed distally on the cystic duct one proximally and it was transected with curved scissors. The cystic artery was doubly clipped proximally, once distally and transected with curved scissors. The gallbladder was removed off the cystic plate with the Bovie. Due to significant inflammation there was inadvertant entry into the liver bed. Any bleeding points were stopped with the Bovie. The gallbladder was placed in a laparoscopic Endo Catch bag and removed via the supraumbilical incision site. The inferior edge of the liver was bluntly retracted cephalad and the cystic plate was copiously irrigated with sterile saline. There was a little scant oozing from the liver bed and a 4x8 cm surgicel was placed at the gallbladder fossa. A 10mm LOREN drain was placed into the abdomen through the right lateral most port site and placed at the gallbladder fossa and secured to the skin with a 2-0 silk stitch. There was no obvious bleeding or apparent bile leak from the cystic plate and the clips on the cystic artery and duct were intact. All irrigation was suctioned free from the abdomen. All insufflation was suctioned free from the abdomen and the ports removed. The abdominal wall at the supraumbilical incision site was closed with a 0 Vicryl [id number] stitch. 30 mL of 0.5% Marcaine was injected subcutaneously at the 4 port sites. The skin at two 5 mm port sites were closed with 4-0 Monocryl interrupted subcuticular stitches. The skin at the supraumbilical incision site was closed with a 4-0 Monocryl running subcuticular stitch. Steri-Strips were applied to all wounds. The patient was awoken in the operating suite having tolerated the procedure well and were taken to PACU in stable condition after all lap and ensuring counts were correct at the end of the case.
[2017-01-22] MEDS ORDERED: Ipratropium/Albuterol Neb 3 ML IH ONE (17:57)
--- NOTE | 2017-01-22 18:38 | Anesthesia Evaluation Post Op ---
Date of Encounter: 01/22/17 Time of Encounter: 18:37 - Vital Signs Vital Signs: Vital Signs/O2 Sat/Glucose, Most Current Temp Pulse Resp BP Pulse Ox 01/22/17 18:33 99.4 F 89 14 115/82 95 01/22/17 18:23 92 13 124/78 91 01/22/17 18:13 98.4 F 94 14 127/76 93 01/22/17 18:03 88 15 121/91 95 01/22/17 17:53 87 17 126/98 94 01/22/17 17:43 98.6 F 89 22 120/75 96 - Lungs Lungs: Clear Ascult./Percussion - Airway Airway: Non-obstructed - Cardiovascular Regular Rate, Baseline Rhythm - Mental Status Mental Status: Alert & Oriented, Answers Appropriately - Pain Pain Scale: 4 Pain Scale used: Numeric (1 - 10) - Nausea Vomiting Nausea Vomiting: Not Present - Hydration Hydration: Ice chips, Has not voided - Discharge PostOp Status: Transfer Patient to floor
[2017-01-22] MEDS: Ipratropium/Albuterol Neb 3 ML IH SCH ×2 (20:02→23:26)
[2017-01-23] MEDS: Ondansetron 4 MG/2 ML VIAL IVP PRN (02:20)
[2017-01-23] MEDS: *HR* HYDROmorphone (PF) 1 MG/ML SYRINGE IVP PRN ×5 (02:21→23:40)
[2017-01-23] MEDS: Clindamycin 600 MG/50 ML 600 MG/50 ML IV.SOLN IVPB SCH ×4 (02:21→23:11)
[2017-01-23] MEDS: Ipratropium/Albuterol Neb 3 ML IH SCH ×3 (03:30→11:33)
[2017-01-23] MEDS: 0.9 % Sodium Chloride 1,000 ML IVC SCH ×3 (04:20→15:07)
[2017-01-23 05:35] LABS: Basophils % 0.1 %; Eosinophils % 0.1 %; Hemoglobin 12.6 g/dL (11.5-15.4); Immature Granulocytes % 0.5 % (0-4); Lymphocytes # 2.2 K/mcL (0.6-4.6); Lymphocytes % 15.8 %; Mean Corpuscular HGB Conc 31.5 g/dL (31.6-35.5); Mean Corpuscular Hemoglobin 25.1 pg (28.0-33.3); Mean Corpuscular Volume 79.7 fL (83.0-100.0); Mean Platelet Volume 9.3 fL (9.4-12.4); Monocytes # 0.6 K/mcL (0.0-1.3); Monocytes % 4.5 %; Platelet Count 344 K/mcL (140-400); Red Blood Count 5.02 M/mcL (3.82-4.97); Red Cell Distribution Width 16.5 % (11.5-14.5)
[2017-01-23 05:47] LABS: Alanine Aminotransferase 80 Units/L (0-55); Albumin 3.1 g/dL (3.5-5.0); Albumin/Globulin Ratio 0.9 (1.1-2.2); Alkaline Phosphatase 80 Units/L (38-126); Aspartate Amino Transferase 82 Units/L (5-34); BUN/Creatinine Ratio 36 (6-26); Bilirubin,Direct 0.1 mg/dL (0.0-0.5); Bilirubin,Indirect 0.3 mg/dL (0.0-1.2); Bilirubin,Total 0.4 mg/dL (0.2-1.2); Blood Urea Nitrogen 21 mg/dL (7-20); Calcium 8.3 mg/dL (8.6-10.8); Carbon Dioxide 21 mEq/L (19-29); Chloride 103 mEq/L (98-109); Globulin 3.6 g/dL (2.4-3.5); Glucose 174 mg/dL (70-99); Osmolality,Calculated 285 (280-300); Potassium 3.8 mEq/L (3.5-4.5); Sodium 134 mEq/L (136-145); Total Protein 6.7 g/dL (6.0-8.3); eGFR For African Americans > 60 (> 60); eGFR For Non-African Americans > 60 (> 60)
[2017-01-23] MEDS: *HR* Enoxaparin 40 MG/0.4 ML SYRINGE SQ SCH (05:57)
[2017-01-23] MEDS: Insulin LISPRO 300 UNITS/3 ML VIAL SQ SCH ×4 (07:08→17:18)
[2017-01-23] MEDS: *HR* OxyCODONE/APAP 5/325 TABLET PO PRN (08:30)
--- NOTE | 2017-01-23 08:54 | Internal Med Progress Note ---
Date of Encounter: 01/23/17 Time of Encounter: 08:50 - Assessment and plan (1) Symptomatic cholelithiasis Current Visit: Yes Status: Acute Assessment and plan: The patient is status post laparoscopic cholecystectomy. Her pain is well controlled. We will advance diet as tolerated per surgery. Surgery is following. Continue with antiemetics and pain control. Her liver enzymes did worsen a little bit today. We will check labs in the morning. Likely discharge in the morning if okay with surgery. (2) Tobacco abuse Current Visit: Yes Status: Acute Assessment and plan: We will add a nicotine patch (3) HTN (hypertension) Current Visit: Yes Status: Chronic Assessment and plan: Hold antihypertensives. Her blood pressures on the lower side. This may be related to her pain medication. Continue with IV fluids. Qualifiers: Hypertension type: essential hypertension Qualified Code(s): I10 - Essential (primary) hypertension (4) DMII (diabetes mellitus, type 2) Current Visit: Yes Status: Acute Assessment and plan: Continue with insulin sliding scales and Accu-Cheks. Qualifiers: Diabetes mellitus complication status: without complication Diabetes mellitus intermediate frame tender insulin use: without intermediate frame tender use Qualified Code(s): E11.9 - Type 2 diabetes mellitus without complications (5) DVT prophylaxis Current Visit: Yes Status: Acute Assessment and plan: Lovenox - Subjective Interval history: Patient was seen and examined this morning. She feels well. She status post laparoscopic cholecystectomy yesterday. There is no complications. She tolerated clear liquid diet yesterday. She says her pain is somewhat about 4-5 out of 10. She had a bowel movement as well. She does not feel nauseated. - Constitutional Vitals: Temp Pulse Resp BP Pulse Ox 98.5 F 75 16 99/64 92 01/23/17 07:44 01/23/17 07:44 01/23/17 07:44 01/23/17 07:44 01/23/17 04:45 Exam: GEN: NAD CVS: RRR. S1, S2, No m/r/g RESP: CTAB ABD: Soft, mild discomfort in the right upper quadrant. JVP is noted with pinkish colored drainage noted., +BS EXT: No edema. 2+ DP, No rashes NEURO: Nonfocal Internal Medicine: Result - Labs CBC & Chem 7: 01/23/17 05:03 01/23/17 05:03 Labs: Short CBC 01/23/17 Range/Units 05:03 WBC 13.9 H D (4.3-11.1) K/mcL Hgb 12.6 (11.5-15.4) g/dL Hct 40.0 (35.3-44.9) % Plt Count 344 (140-400) K/mcL Neutrophils # 11.0 H (1.6-8.9) K/mcL BMP 01/23/17 05:03 Sodium 134 L Potassium 3.8 Chloride 103 Carbon Dioxide 21 BUN 21 H D Creatinine 0.59 Glucose 174 H Calcium 8.3 L Liver Function 01/23/17 Range/Units 05:03 Total Bilirubin 0.4 (0.2-1.2) mg/dL Direct Bilirubin 0.1 (0.0-0.5) mg/dL AST 82 H (5-34) Units/L ALT 80 H (0-55) Units/L Alkaline Phosphatase 80 (38-126) Units/L Albumin 3.1 L (3.5-5.0) g/dL - ABG Interpretation ABG results: PT/INR, D-dimer PT 9.9 Seconds (9.4-12.1) 01/22/17 05:03 - VTE Documentation of Mechanical Device: Intermittent pneumatic compression device Consult Discharge Plan - Plan Referrals: Cecile Vivar DO [Primary Care Provider] -
[2017-01-23] MEDS: Sennosides/Docusate Sodium TABLET PO SCH ×2 (10:21→20:16)
[2017-01-23] MEDS: Nicotine 21 MG PATCH.TD24 TD SCH (10:21)
--- NOTE | 2017-01-23 10:29 | General Surgery Progress Note ---
<Kathi Rios - Last Filed: 01/23/17 10:38> Date of Encounter: 01/23/17 Time of Encounter: 10:00 - Assessment and Plan (1) Choledocholithiasis Current Visit: Yes Status: Acute s/p Laproscopic cholecystectomy with LOREN drain placement Date of procedure: 01/22/17 Pre-op diagnosis: symptomatic cholelithiasis Post-op diagnosis: other (acute cholecystitis with hydrops) Procedure: Laparoscopic cholecystectomy Of note due to significant inflammation there was an inadvertent entry into the liver and a LOREN drain was subsequently placed. There was no obvious bleeding or bile leak from the cystic plate. LOREN drain is saturated on exam. There is clots in the line. The line was stripped and there was return of a small amount of serous drainage noted. There is no bright red or obvious bleeding noted. She reports feeling of some bloating, a large bowel movement this a.m., discomfort is controlled on current regimen, and she is ambulating and voiding without difficulty. LFTs elevated as expected. No significant RUQ pain or changes in LOREN drainage Plan: Advance diet as tolerate Continue supportive care and discomfort management. Start scheduled toward all 15 mg IV Q6 hours; continue PRN Percocet Remain in the hospital for observation another 24 to 48 hours pending clinical course Continue scheduled IV Cleocin Maintain LOREN bulb to suction and strip lines Q4H and PRN if clots Repeat AM labs; closely monitor LOREN output (2) Diastasis recti Current Visit: Yes Status: Chronic No surgical intervention indicated at this time (3) HTN (hypertension) Current Visit: Yes Status: Chronic Per primary medicine Qualifiers: Hypertension type: essential hypertension Qualified Code(s): I10 - Essential (primary) hypertension (4) DMII (diabetes mellitus, type 2) Current Visit: Yes Status: Acute Qualifiers: Diabetes mellitus complication status: without complication Diabetes mellitus termite treater helper insulin use: without residential use Qualified Code(s): E11.9 - Type 2 diabetes mellitus without complications Objective Vital Signs - Last 8 Hours Temp Pulse Resp BP Pulse Ox 01/23/17 07:44 98.5 F 75 16 99/64 01/23/17 04:45 97.8 F 80 14 111/72 92 01/23/17 03:30 95 Intake and Output 01/22/17 01/23/17 01/23/17 23:59 07:59 15:59 Intake Total 0 / 0 530 / 530 360 / 360 Output Total 45 / 45 1320 / 1320 Balance -45 / -45 -790 / -790 360 / 360 Intake: IV Fluids 50 / 50 Cleocin Premix 600 MG/50 ML 600 50 / 50 mg In 50 ml @ 50 mls/hr IVPB Q8HR [facility] Rx#:[id number] Oral 0 / 0 480 / 480 360 / 360 Output: Urine 1300 / 1300 Estimated Blood Loss Other Wound Drainage Other: Meal NPO Breakfast Percent of Meal Consumed 0% Stool Size Moderate Stool Consistency formed Stool Characteristics Normal for Patient Stool Color Brown # Voids 1 Weight 87.044 kg Blood Glucose* 166 Patient Weight 01/23/17 23:59 Weight 87.044 kg - Labs 01/23/17 05:03 01/23/17 05:03 Diabetes panel 01/23/17 Range/Units 05:03 Sodium 134 L (136-145) mEq/L Potassium 3.8 (3.5-4.5) mEq/L Chloride 103 (98-109) mEq/L Carbon Dioxide 21 (19-29) mEq/L BUN 21 H D (7-20) mg/dL Creatinine 0.59 (0.57-1.11) mg/dL Glucose 174 H (70-99) mg/dL Calcium 8.3 L (8.6-10.8) mg/dL AST 82 H (5-34) Units/L ALT 80 H (0-55) Units/L Alkaline Phosphatase 80 (38-126) Units/L Albumin 3.1 L (3.5-5.0) g/dL Calcium panel 01/23/17 Range/Units 05:03 Calcium 8.3 L (8.6-10.8) mg/dL Albumin 3.1 L (3.5-5.0) g/dL Pituitary panel 01/23/17 Range/Units 05:03 Sodium 134 L (136-145) mEq/L Potassium 3.8 (3.5-4.5) mEq/L Chloride 103 (98-109) mEq/L Carbon Dioxide 21 (19-29) mEq/L BUN 21 H D (7-20) mg/dL Creatinine 0.59 (0.57-1.11) mg/dL Glucose 174 H (70-99) mg/dL Calcium 8.3 L (8.6-10.8) mg/dL Adrenal panel 01/23/17 Range/Units 05:03 Sodium 134 L (136-145) mEq/L Potassium 3.8 (3.5-4.5) mEq/L Chloride 103 (98-109) mEq/L Carbon Dioxide 21 (19-29) mEq/L BUN 21 H D (7-20) mg/dL Creatinine 0.59 (0.57-1.11) mg/dL Glucose 174 H (70-99) mg/dL Calcium 8.3 L (8.6-10.8) mg/dL Total Bilirubin 0.4 (0.2-1.2) mg/dL AST 82 H (5-34) Units/L ALT 80 H (0-55) Units/L Alkaline Phosphatase 80 (38-126) Units/L Albumin 3.1 L (3.5-5.0) g/dL - VTE Documentation of Mechanical Device: Intermittent pneumatic compression device Consult Discharge Plan - Plan Instructions: Tristen-Bassett Drain Care (DC), Laparoscopic Cholecystectomy (DC) Additional Instructions: General Surgical Discharge Instructions 1. No pushing, pulling, or lifting greater than 15 lbs for 2-4 weeks (depending upon procedure). 2. You may shower beginning today, but no tub baths, soaking, or swimming for 2 weeks. 3. You may resume driving when you are off narcotics and are safe to react in a car. 4. Take ibuprofen every 8 hours for discomfort. If this does not relieve discomfort, you may take the as needed Percocet. Take narcotics as directed. Do not take more narcotics then directed and do not share your narcotics with any other person. Do not drink alcohol while on narcotics. 5. Take stool softeners (Colace) or a water based laxative (Miralax) while taking narcotics. You may hold for loose stools. 6. Report any fevers greater than 100.5F, increase abdominal discomfort, drainage that looks like pus, increased redness or pain at the surgical site, or any vomiting. 7. Report any pain in the calves, shortness of breath, or rapid heartbeat. 8. Follow-up in the office as directed. 9. If you were prescribed antibiotics, do not stop them without talking to your provider. 10. Record your drainage from your LOREN on the sheet provided and bring that with you to your were follow-up appointment. Change your LOREN drain bandage daily after shower. Do not let the LOREN drain dangle from your abdomen. When you shower, Suspended around your neck with a lanyard or a string long enough to support the LOREN. Otherwise, you may use the safety pin provided to secure the LOREN drain to your clothing. 11. Keep your LOREN drain taped towards the left side of your body in addition to instructions above. Referrals: Kathi Rios RFID STRATEGIST [Advanced Practice Nurse] - 01/30/17 12:45 pm Prescriptions: Ondansetron ODT [Zofran ODT] 4 mg SL Q4HR #15 tab.rapdis Clindamycin [Cleocin] 150 mg PO Q6HR #40 capsule OxyCODONE/APAP 5/325 [Percocet 5/325 MG] 1 each PO Q6HR PRN #28 tablet PRN Reason: Pain Ibuprofen [Motrin] 800 mg PO Q8HR #42 tablet Docusate [Colace] 100 mg PO BID #30 capsule Fluconazole [Diflucan] 100 mg PO DAILY #2 tablet LORazepam [Ativan] 0.5 mg PO DAILY PRN #7 tablet PRN Reason: Anxiety <Lou Day - Last Filed: 01/24/17 14:35> Date of Encounter: 01/23/17 Time of Encounter: 12:30 - Assessment and Plan (1) Symptomatic cholelithiasis Current Visit: Yes Status: Resolved patient had acute cholecystisis and hydrops of the gallbladder and is s/p pod 1 lap cholecystectomy pain controlled on current regimen ambulating tolerating diabetic diet no nausea ok to DC from surgery standpoint tomorrow LOREN drain teaching (output is serosangionous) (2) DMII (diabetes mellitus, type 2) Current Visit: Yes Status: Acute Qualifiers: Diabetes mellitus complication status: without complication Diabetes mellitus residential insulin use: without residential use Qualified Code(s): E11.9 - Type 2 diabetes mellitus without complications (3) Diastasis recti Current Visit: Yes Status: Chronic (4) HTN (hypertension) Current Visit: Yes Status: Chronic Qualifiers: Hypertension type: essential hypertension Qualified Code(s): I10 - Essential (primary) hypertension Subjective Narrative: has some abdominal pain at surgery sites, no nausea, tolerated clears and now on diabetic diet passing flatus no bm ambulating no complaints Objective Vital Signs - Last 8 Hours Temp Pulse Resp BP Pulse Ox 01/24/17 14:15 98.3 F 80 16 136/88 93 01/24/17 10:24 97.8 F 80 14 112/71 94 01/24/17 07:21 98.0 F 76 16 124/78 93 Intake and Output 01/23/17 01/24/17 01/24/17 23:59 07:59 15:59 Intake Total 50 / 50 1000 / 1000 360 / 360 Output Total 70 / 70 1070 / 1070 920 / 920 Balance -20 / -20 -70 / -70 -560 / -560 Intake: IV Fluids 50 / 50 1000 / 1000 0.9 % Sodium Chloride 1,000 ML 950 / 950 @ 100 mls/hr IVC .Q10H [facility] Rx#: [id number] Cleocin Premix 600 MG/50 ML 600 50 / 50 50 / 50 mg In 50 ml @ 50 mls/hr IVPB Q8HR [facility] Rx#:[id number] Oral 0 / 0 0 / 0 360 / 360 Output: Urine 0 / 0 1050 / 1050 900 / 900 Wound Drainage 70 / 70 20 / 20 20 / 20 Right Upper Abdomen 70 / 70 20 / 20 20 20 Other: Meal Lunch Percent of Meal Consumed 75% # Bowel Movements 0 0 Weight 86.863 kg Blood Glucose* 318 226 239 Patient Weight 01/24/17 23:59 Weight 86.863 kg - General physical appearance well developed, well nourished, no distress - Eyes normal ocular movement - ENT normal mucosa, normocephalic - Respiratory normal expansion, normal respiratory effort - Cardiovascular Cardiovascular exam: Present: RRR - Abdomen Abdomen: Present: soft, tender (appropriate post op tenderness, no rebound or guarding) - Incision Incision: Present: clean and dry, intact - Neurologic CN 2-12 grossly intact - Musculoskeletal normal posture - Psychiatric oriented to time, oriented to person, oriented to place, speech is normal, memory intact - Labs 01/24/17 05:19 01/24/17 05:19 Diabetes panel 01/24/17 Range/Units 05:19 Sodium 134 L (136-145) mEq/L Potassium 3.6 (3.5-5.1) mEq/L Chloride 107 (98-107) mEq/L Carbon Dioxide 21 L (23-29) mEq/L BUN 13 (6-20) mg/dL Creatinine 0.47 L (0.60-1.20) mg/dL Glucose 290 H (70-105) mg/dL Calcium 7.8 L (8.6-10.3) mg/dL AST 26 (13-39) Units/L ALT 46 (7-52) Units/L Alkaline Phosphatase 84 (34-104) Units/L Albumin 3.2 L (3.5-5.7) g/dL Calcium panel 01/24/17 Range/Units 05:19 Calcium 7.8 L (8.6-10.3) mg/dL Albumin 3.2 L (3.5-5.7) g/dL Pituitary panel 01/24/17 Range/Units 05:19 Sodium 134 L (136-145) mEq/L Potassium 3.6 (3.5-5.1) mEq/L Chloride 107 (98-107) mEq/L Carbon Dioxide 21 L (23-29) mEq/L BUN 13 (6-20) mg/dL Creatinine 0.47 L (0.60-1.20) mg/dL Glucose 290 H (70-105) mg/dL Calcium 7.8 L (8.6-10.3) mg/dL Adrenal panel 01/24/17 Range/Units 05:19 Sodium 134 L (136-145) mEq/L Potassium 3.6 (3.5-5.1) mEq/L Chloride 107 (98-107) mEq/L Carbon Dioxide 21 L (23-29) mEq/L BUN 13 (6-20) mg/dL Creatinine 0.47 L (0.60-1.20) mg/dL Glucose 290 H (70-105) mg/dL Calcium 7.8 L (8.6-10.3) mg/dL Total Bilirubin 0.2 L (0.3-1.0) mg/dL AST 26 (13-39) Units/L ALT 46 (7-52) Units/L Alkaline Phosphatase 84 (34-104) Units/L Albumin 3.2 L (3.5-5.7) g/dL - Attending Attestation I have personally performed a face to face evaluation on this patient. I have reviewed and agree with the care plan. History and Exam by me shows:
[2017-01-23] MEDS: Ketorolac 15 MG/ML VIAL IVP SCH ×3 (12:15→23:10)
--- NOTE | 2017-01-23 16:12 | Electrocardiograph Report ---
[place] [id number] Test Date: 2017-01-22 Pat Name: Martha Loomis Department: 115 Room: 3A24 Gender: F Systems Technician: OMAR : 1965 Requested By: Christina Jordan Order Number: [id number] Reading MD: Shamar Westfall DO Measurements Intervals [place] Rate: 63 P: 47 TX: 196 QRS: 1 QRSD: 90 T: 17 QT: 424 QTc: 431 Interpretive Statements SINUS RHYTHM LOW QRS VOLTAGE IN PRECORDIAL LEADS Electronically Signed On 01-23-2017 16:10:55 EST by Shamar Westfall DO
[2017-01-23] MEDS ORDERED: Insulin LISPRO 300 UNITS/3 ML VIAL SQ SCH (21:00)
[2017-01-24] MEDS: *HR* HYDROmorphone (PF) 1 MG/ML SYRINGE IVP PRN (03:45)
[2017-01-24] MEDS: 0.9 % Sodium Chloride 1,000 ML IVC SCH (03:48)
[2017-01-24] MEDS: *HR* OxyCODONE/APAP 5/325 TABLET PO PRN ×3 (04:12→13:00)
[2017-01-24] MEDS: *HR* Enoxaparin 40 MG/0.4 ML SYRINGE SQ SCH (06:10)
[2017-01-24] MEDS: Ketorolac 15 MG/ML VIAL IVP SCH ×3 (06:10→17:29)
[2017-01-24 06:31] LABS: Basophils % 0.3 %; Eosinophils # 0.2 K/mcL (0.0-0.6); Eosinophils % 1.8 %; Hematocrit 36.1 % (35.3-44.9); Hemoglobin 11.6 g/dL (11.5-15.4); Immature Granulocytes % 0.9 % (0-4); Lymphocytes # 2.3 K/mcL (0.6-4.6); Lymphocytes % 25.8 %; Mean Corpuscular HGB Conc 32.1 g/dL (31.6-35.5); Mean Corpuscular Hemoglobin 26.1 pg (28.0-33.3); Mean Corpuscular Volume 81.3 fL (83.0-100.0); Mean Platelet Volume 9.7 fL (9.4-12.4); Monocytes # 0.4 K/mcL (0.0-1.3); Monocytes % 4.8 %; Neutrophils # 5.8 K/mcL (1.6-8.9); Platelet Count 267 K/mcL (140-400); Red Blood Count 4.44 M/mcL (3.82-4.97); Red Cell Distribution Width 16.5 % (11.5-14.5); Segmented Neutrophils % 66.4 %
[2017-01-24 06:46] LABS: Alanine Aminotransferase 46 Units/L (7-52); Albumin 3.2 g/dL (3.5-5.7); Albumin/Globulin Ratio 1.3 (1.1-2.2); Alkaline Phosphatase 84 Units/L (34-104); Aspartate Amino Transferase 26 Units/L (13-39); BUN/Creatinine Ratio 28 (6-26); Bilirubin,Indirect 0.2 mg/dL (0.0-1.2); Bilirubin,Total 0.2 mg/dL (0.3-1.0); Blood Urea Nitrogen 13 mg/dL (6-20); Calcium 7.8 mg/dL (8.6-10.3); Carbon Dioxide 21 mEq/L (23-29); Chloride 107 mEq/L (98-107); Globulin 2.4 g/dL (2.4-3.5); Glucose 290 mg/dL (70-105); Osmolality,Calculated 289 (280-300); Potassium 3.6 mEq/L (3.5-5.1); Sodium 134 mEq/L (136-145); Total Protein 5.6 g/dL (6.4-8.9); eGFR For African Americans > 60 (> 60); eGFR For Non-African Americans > 60 (> 60)
--- NOTE | 2017-01-24 08:39 | General Surgery Progress Note ---
Date of Encounter: 01/24/17 Time of Encounter: 08:37 - Assessment and Plan (1) Choledocholithiasis Current Visit: Yes Status: Acute s/p Laproscopic cholecystectomy with LOREN drain placement Date of procedure: 01/22/17 Pre-op diagnosis: symptomatic cholelithiasis Post-op diagnosis: other (acute cholecystitis with hydrops) Procedure: Laparoscopic cholecystectomy Of note due to significant inflammation there was an inadvertent entry into the liver and a LOREN drain was subsequently placed. There was no obvious bleeding or bile leak from the cystic plate. LOREN drain dressing saturated on exam. Of note when repositioning LOREN drain to extend towards the left lateral position, drainage around the ball decreases. Her abdomen is otherwise benign. LFTs have returned to normal. Plan: okay for patient to DC from a surgical perspective. She is recommended to keep the LOREN drain taped towards the left lateral position as this is reduced drainage. see d/C plan for further discharge instructions. Patient states that she is able to maintain her own drain care. (2) Diastasis recti Current Visit: Yes Status: Chronic No surgical intervention indicated at this time (3) HTN (hypertension) Current Visit: Yes Status: Chronic Per primary medicine Qualifiers: Hypertension type: essential hypertension Qualified Code(s): I10 - Essential (primary) hypertension (4) DMII (diabetes mellitus, type 2) Current Visit: Yes Status: Acute Qualifiers: Diabetes mellitus complication status: without complication Diabetes mellitus group home insulin use: without group home use Qualified Code(s): E11.9 - Type 2 diabetes mellitus without complications Subjective Patient reports: no new complaints, feels better, still having pain, pain is less, tolerating a regular diet, voiding w/o difficulty, flatus, bowel movement , afebrile Objective Vital Signs - Last 8 Hours Temp Pulse Resp BP Pulse Ox 01/24/17 07:21 98.0 F 76 16 124/78 93 01/24/17 03:37 97.9 F 82 14 114/79 95 Intake and Output 01/23/17 01/24/17 01/24/17 23:59 07:59 15:59 Intake Total 50 / 50 1000 / 1000 Output Total 70 / 70 1070 / 1070 Balance -20 / -20 -70 / -70 Intake: IV Fluids 50 / 50 1000 / 1000 0.9 % Sodium Chloride 1,000 ML 950 / 950 @ 100 mls/hr IVC .Q10H [facility] Rx#: [id number] Cleocin Premix 600 MG/50 ML 600 50 / 50 50 / 50 mg In 50 ml @ 50 mls/hr IVPB Q8HR [facility] Rx#:[id number] Oral 0 / 0 0 / 0 Output: Urine 0 / 0 1050 / 1050 Wound Drainage 70 / 70 20 / 20 Right Upper Abdomen 70 / 70 20 / 20 Other: # Bowel Movements 0 Weight 86.863 kg Blood Glucose* 318 226 Patient Weight 01/24/17 23:59 Weight 86.863 kg - General physical appearance no distress - Eyes normal ocular movement - ENT atraumatic, normocephalic - Neck Neck exam: trachea midline, no venous distension - Respiratory normal expansion, normal respiratory effort, clear to auscultation - Cardiovascular Cardiovascular exam: Present: RRR, murmurs, distant heart sounds - Abdomen Abdomen: Present: bowel sounds present, soft, tender (Expected postoperative), wound (Right LOREN drain with small amount of serous drainage in the bulb. There is significant leaking noted around the bulb.) Hernia: none - Incision Incision: Present: clean and dry, intact - Integumentary no growths - Neurologic normal coordination, normal sensation - Musculoskeletal normal posture - Psychiatric oriented to time, oriented to person, oriented to place, speech is normal, memory intact - Labs 01/24/17 05:19 01/24/17 05:19 Diabetes panel 01/24/17 Range/Units 05:19 Sodium 134 L (136-145) mEq/L Potassium 3.6 (3.5-5.1) mEq/L Chloride 107 (98-107) mEq/L Carbon Dioxide 21 L (23-29) mEq/L BUN 13 (6-20) mg/dL Creatinine 0.47 L (0.60-1.20) mg/dL Glucose 290 H (70-105) mg/dL Calcium 7.8 L (8.6-10.3) mg/dL AST 26 (13-39) Units/L ALT 46 (7-52) Units/L Alkaline Phosphatase 84 (34-104) Units/L Albumin 3.2 L (3.5-5.7) g/dL Calcium panel 01/24/17 Range/Units 05:19 Calcium 7.8 L (8.6-10.3) mg/dL Albumin 3.2 L (3.5-5.7) g/dL Pituitary panel 01/24/17 Range/Units 05:19 Sodium 134 L (136-145) mEq/L Potassium 3.6 (3.5-5.1) mEq/L Chloride 107 (98-107) mEq/L Carbon Dioxide 21 L (23-29) mEq/L BUN 13 (6-20) mg/dL Creatinine 0.47 L (0.60-1.20) mg/dL Glucose 290 H (70-105) mg/dL Calcium 7.8 L (8.6-10.3) mg/dL Adrenal panel 01/24/17 Range/Units 05:19 Sodium 134 L (136-145) mEq/L Potassium 3.6 (3.5-5.1) mEq/L Chloride 107 (98-107) mEq/L Carbon Dioxide 21 L (23-29) mEq/L BUN 13 (6-20) mg/dL Creatinine 0.47 L (0.60-1.20) mg/dL Glucose 290 H (70-105) mg/dL Calcium 7.8 L (8.6-10.3) mg/dL Total Bilirubin 0.2 L (0.3-1.0) mg/dL AST 26 (13-39) Units/L ALT 46 (7-52) Units/L Alkaline Phosphatase 84 (34-104) Units/L Albumin 3.2 L (3.5-5.7) g/dL - VTE Documentation of Mechanical Device: Intermittent pneumatic compression device Consult Discharge Plan - Plan Instructions: Tristen-Bassett Drain Care (DC), Laparoscopic Cholecystectomy (DC) Additional Instructions: General Surgical Discharge Instructions 1. No pushing, pulling, or lifting greater than 15 lbs for 2-4 weeks (depending upon procedure). 2. You may shower beginning today, but no tub baths, soaking, or swimming for 2 weeks. 3. You may resume driving when you are off narcotics and are safe to react in a car. 4. Take ibuprofen every 8 hours for discomfort. If this does not relieve discomfort, you may take the as needed Percocet. Take narcotics as directed. Do not take more narcotics then directed and do not share your narcotics with any other person. Do not drink alcohol while on narcotics. 5. Take stool softeners (Colace) or a water based laxative (Miralax) while taking narcotics. You may hold for loose stools. 6. Report any fevers greater than 100.5F, increase abdominal discomfort, drainage that looks like pus, increased redness or pain at the surgical site, or any vomiting. 7. Report any pain in the calves, shortness of breath, or rapid heartbeat. 8. Follow-up in the office as directed. 9. If you were prescribed antibiotics, do not stop them without talking to your provider. 10. Record your drainage from your LOREN on the sheet provided and bring that with you to your were follow-up appointment. Change your LOREN drain bandage daily after shower. Do not let the LOREN drain dangle from your abdomen. When you shower, Suspended around your neck with a lanyard or a string long enough to support the LOREN. Otherwise, you may use the safety pin provided to secure the LOREN drain to your clothing. 11. Keep your LOREN drain taped towards the left side of your body in addition to instructions above. Referrals: Cecile Vivar DO [Primary Care Provider] - Kathi Rios CNP [Advanced Practice Nurse] - 01/30/17 12:45 pm Prescriptions: Ondansetron ODT [Zofran ODT] 4 mg SL Q4HR #15 tab.rapdis Clindamycin [Cleocin] 150 mg PO Q6HR #40 capsule OxyCODONE/APAP 5/325 [Percocet 5/325 MG] 1 each PO Q6HR PRN #28 tablet PRN Reason: Pain Ibuprofen [Motrin] 800 mg PO Q8HR #42 tablet Docusate [Colace] 100 mg PO BID #30 capsule Fluconazole [Diflucan] 100 mg PO DAILY #2 tablet LORazepam [Ativan] 0.5 mg PO DAILY PRN #7 tablet PRN Reason: Anxiety
[2017-01-24] MEDS: Nicotine 21 MG PATCH.TD24 TD SCH (08:44)
[2017-01-24] MEDS: Clindamycin 600 MG/50 ML 600 MG/50 ML IV.SOLN IVPB SCH ×2 (08:45→16:20)
[2017-01-24] MEDS: Insulin LISPRO 300 UNITS/3 ML VIAL SQ SCH ×3 (08:49→16:53)
--- NOTE | 2017-01-24 09:14 | Internal Med Progress Note ---
Date of Encounter: 01/24/17 Time of Encounter: 09:10 - Assessment and plan (1) Symptomatic cholelithiasis Current Visit: Yes Status: Acute Assessment and plan: The patient is status post laparoscopic cholecystectomy. Pain control with Percocet. I have stopped her Dilaudid. We will advance diet as tolerated per surgery. Surgery is following. Continue with antiemetics and pain control. Her liver enzymes are better today. We will check labs in the morning. Discharge when surgeries okay with discharge. (2) Tobacco abuse Current Visit: Yes Status: Acute Assessment and plan: nicotine patch (3) HTN (hypertension) Current Visit: Yes Status: Chronic Assessment and plan: better. We will continue to hold her antihypertensive however this morning. Continue with IV fluids. Qualifiers: Hypertension type: essential hypertension Qualified Code(s): I10 - Essential (primary) hypertension (4) DMII (diabetes mellitus, type 2) Current Visit: Yes Status: Acute Assessment and plan: Glucose is elevated in the 200s and 300s. I will continue the sliding scale and add 15 units of Levemir be given this morning. Continue with Accu-Cheks. Qualifiers: Diabetes mellitus complication status: without complication Diabetes mellitus termite control representative insulin use: without termite control representative use Qualified Code(s): E11.9 - Type 2 diabetes mellitus without complications (5) DVT prophylaxis Current Visit: Yes Status: Acute Assessment and plan: Lovenox - Subjective Interval history: Patient was seen and examined this morning. She is complaining of abdominal pain. She thinks there is swelling around her surgical site. She was seen by surgery who planned to give her another 24-48 hours. LOREN drain still draining. She has been afebrile. S - Constitutional Vitals: Temp Pulse Resp BP Pulse Ox 98.0 F 76 16 124/78 93 01/24/17 07:21 01/24/17 07:21 01/24/17 07:21 01/24/17 07:21 01/24/17 07:21 Exam: GEN: NAD CVS: RRR. S1, S2, No m/r/g RESP: CTAB ABD: Soft, mild discomfort in the right upper quadrant. LOREN is noted with pinkish colored drainage noted., +BS EXT: No edema. 2+ DP, No rashes NEURO: Nonfocal Internal Medicine: Result - Labs CBC & Chem 7: 01/24/17 05:19 12/20/17 05:19 Labs: Short CBC 01/24/17 Range/Units 05:19 WBC 8.8 (4.3-11.1) K/mcL Hgb 11.6 (11.5-15.4) g/dL Hct 36.1 (35.3-44.9) % Plt Count 267 (140-400) K/mcL Neutrophils # 5.8 (1.6-8.9) K/mcL BMP 01/24/17 05:19 Sodium 134 L Potassium 3.6 Chloride 107 Carbon Dioxide 21 L BUN 13 Creatinine 0.47 L Glucose 290 H Calcium 7.8 L Liver Function 01/24/17 Range/Units 05:19 Total Bilirubin 0.2 L (0.3-1.0) mg/dL Direct Bilirubin 0.0 (0.0-0.2) mg/dL AST 26 (13-39) Units/L ALT 46 (7-52) Units/L Alkaline Phosphatase 84 (34-104) Units/L Albumin 3.2 L (3.5-5.7) g/dL - ABG Interpretation ABG results: PT/INR, D-dimer PT 9.9 Seconds (9.4-12.1) 01/22/17 05:03 - VTE Documentation of Mechanical Device: Intermittent pneumatic compression device Consult Discharge Plan - Plan Instructions: Tristen-Bassett Drain Care (DC), Laparoscopic Cholecystectomy (DC) Additional Instructions: General Surgical Discharge Instructions 1. No pushing, pulling, or lifting greater than 15 lbs for 2-4 weeks (depending upon procedure). 2. You may shower beginning today, but no tub baths, soaking, or swimming for 2 weeks. 3. You may resume driving when you are off narcotics and are safe to react in a car. 4. Take ibuprofen every 8 hours for discomfort. If this does not relieve discomfort, you may take the as needed Percocet. Take narcotics as directed. Do not take more narcotics then directed and do not share your narcotics with any other person. Do not drink alcohol while on narcotics. 5. Take stool softeners (Colace) or a water based laxative (Miralax) while taking narcotics. You may hold for loose stools. 6. Report any fevers greater than 100.5F, increase abdominal discomfort, drainage that looks like pus, increased redness or pain at the surgical site, or any vomiting. 7. Report any pain in the calves, shortness of breath, or rapid heartbeat. 8. Follow-up in the office as directed. 9. If you were prescribed antibiotics, do not stop them without talking to your provider. 10. Record your drainage from your LOREN on the sheet provided and bring that with you to your were follow-up appointment. Change your LOREN drain bandage daily after shower. Do not let the LOREN drain dangle from your abdomen. When you shower, Suspended around your neck with a lanyard or a string long enough to support the LOREN. Otherwise, you may use the safety pin provided to secure the LOREN drain to your clothing. Referrals: Cecile Vivar DO [Primary Care Provider] - Kathi Rios CNP [Advanced Practice Nurse] - 01/30/17 12:45 pm Prescriptions: Ondansetron ODT [Zofran ODT] 4 mg SL Q4HR #15 tab.rapdis Clindamycin [Cleocin] 150 mg PO Q6HR #40 capsule OxyCODONE/APAP 5/325 [Percocet 5/325 MG] 1 each PO Q6HR PRN #28 tablet PRN Reason: Pain Ibuprofen [Motrin] 800 mg PO Q8HR #42 tablet Docusate [Colace] 100 mg PO BID #30 capsule Fluconazole [Diflucan] 100 mg PO DAILY #2 tablet
[2017-01-24] MEDS ORDERED: Insulin DETEMIR 100 UNIT/ML X5UNITS SQ ONE (09:16)
--- NOTE | 2017-01-24 11:52 | Discharge Summary ---
Date of Encounter: 01/24/17 Time of Encounter: 11:00 - Discharge Diagnosis (1) Symptomatic cholelithiasis Priority: Primary Status: Acute (2) Tobacco abuse Priority: Primary Status: Acute (3) HTN (hypertension) Priority: Secondary Status: Chronic Qualifiers: Hypertension type: essential hypertension Qualified Code(s): I10 - Essential (primary) hypertension (4) DMII (diabetes mellitus, type 2) Priority: Secondary Status: Acute Qualifiers: Diabetes mellitus complication status: without complication Diabetes mellitus correction insulin use: without correction use Qualified Code(s): E11.9 - Type 2 diabetes mellitus without complications - Discharge Medications Prescriptions: Ondansetron ODT [Zofran ODT] 4 mg SL Q4HR #15 tab.rapdis Clindamycin [Cleocin] 150 mg PO Q6HR #40 capsule OxyCODONE/APAP 5/325 [Percocet 5/325 MG] 1 each PO Q6HR PRN #28 tablet PRN Reason: Pain Ibuprofen [Motrin] 800 mg PO Q8HR #42 tablet Docusate [Colace] 100 mg PO BID #30 capsule Fluconazole [Diflucan] 100 mg PO DAILY #2 tablet LORazepam [Ativan] 0.5 mg PO DAILY PRN #7 tablet PRN Reason: Anxiety Home Medications: Atorvastatin [Lipitor] 40 mg PO HS 01/22/17 [History] Glimepiride [Amaryl] 4 mg PO BID 01/22/17 [History] Lisinopril-HCTZ 20-12.5 [Prinzide 20-12.5] 1 each PO DAILY 01/22/17 [History] Sertraline [Zoloft] 100 mg PO DAILY 01/22/17 [History] metFORMIN [Glucophage] 1,000 mg PO BIDWM 01/22/17 [History] Clindamycin [Cleocin] 150 mg PO Q6HR #40 capsule 01/23/17 [Rx] Docusate [Colace] 100 mg PO BID #30 capsule 01/23/17 [Rx] Ibuprofen [Motrin] 800 mg PO Q8HR #42 tablet 01/23/17 [Rx] Ondansetron ODT [Zofran ODT] 4 mg SL Q4HR #15 tab.rapdis 01/23/17 [Rx] OxyCODONE/APAP 5/325 [Percocet 5/325 MG] 1 each PO Q6HR PRN #28 tablet 01/23/17 [Rx] Fluconazole [Diflucan] 100 mg PO DAILY #2 tablet 01/24/17 [Rx] LORazepam [Ativan] 0.5 mg PO DAILY PRN #7 tablet 01/24/17 [Rx] Allergies/Adverse Reactions: 3 Allergy/AdvReac Type Severity Reaction Status Date / Time Penicillins AdvReac Rash Verified 01/21/17 18:44 Procedures/tests Complete & Pending: Procedures Performed prior 72 hours Category Date Time Status EKG [ECG 12 lead ECG] [ECG] AM 0600 Y 01/22/17 06:00 Completed Date of admission: 01/22/17 00:34 Primary care physician: Humza Bang Consults: 01/22/17 06:02 Consult to Pastoral Services [CONS] Routine Comment: 01/22/17 08:50 Consult to Surgery [CONS] Routine Consulting Provider: [facility] Reason for Consult: Abdominal pain, impacted stone in gallbladder neck Call Completed: Yes - Patient Status Disposition: Home, Self-Care Overall status at discharge: patient is back to baseline - Discharge Instructions Instructions: Tristen-Bassett Drain Care (DC), Laparoscopic Cholecystectomy (DC) Follow Up With: Kathi Rios CNP [Advanced Practice Nurse] - 01/30/17 12:45 pm Additional Instructions: General Surgical Discharge Instructions 1. No pushing, pulling, or lifting greater than 15 lbs for 2-4 weeks (depending upon procedure). 2. You may shower beginning today, but no tub baths, soaking, or swimming for 2 weeks. 3. You may resume driving when you are off narcotics and are safe to react in a car. 4. Take ibuprofen every 8 hours for discomfort. If this does not relieve discomfort, you may take the as needed Percocet. Take narcotics as directed. Do not take more narcotics then directed and do not share your narcotics with any other person. Do not drink alcohol while on narcotics. 5. Take stool softeners (Colace) or a water based laxative (Miralax) while taking narcotics. You may hold for loose stools. 6. Report any fevers greater than 100.5F, increase abdominal discomfort, drainage that looks like pus, increased redness or pain at the surgical site, or any vomiting. 7. Report any pain in the calves, shortness of breath, or rapid heartbeat. 8. Follow-up in the office as directed. 9. If you were prescribed antibiotics, do not stop them without talking to your provider. 10. Record your drainage from your LOREN on the sheet provided and bring that with you to your were follow-up appointment. Change your LOREN drain bandage daily after shower. Do not let the LOREN drain dangle from your abdomen. When you shower, Suspended around your neck with a lanyard or a string long enough to support the LOREN. Otherwise, you may use the safety pin provided to secure the LOREN drain to your clothing. 11. Keep your LOREN drain taped towards the left side of your body in addition to instructions above. - Diet and Activity Activity: resume usual activities as tolerated Diet: diabetic diet Hospital course: Ms. Loomis is a 51 year old female who presented with acute on subacute onset of abdominal symptoms. Was found to have impacted gallstones in the gallbladder neck. She reported several months of non-specific bloating symptoms associated with intermittent nausea and feeling ill. She had a CT abd/pelvis showing d iffuse fatty infiltration of the liver but no focal disease. Partly calcified gallbladder wall but no evidence of cholelithiasis or acute cholecystitis. A RUQ ultrasound came back with 1.65 cm gallstone in the gallbladder neck accounting for the rim calcification noted on the prior CT study. Was admitted and made NPO and seen by surgery who took the patient for lap herlinda. She did well post op and tolerated diet and will need f/u with surgery. - Time Spent with Patient Total time spent providing and/or coordinating discharge services: Greater than 30 minutes - Constitutional Vitals: Temp Pulse Resp BP Pulse Ox 97.8 F 80 14 112/71 94 01/24/17 10:24 01/24/17 10:24 01/24/17 10:24 01/24/17 10:24 01/24/17 10:24 Exam: GEN: NAD CVS: RRR. S1, S2, No m/r/g RESP: CTAB ABD: Soft, mild discomfort in the right upper quadrant. LOREN is noted with pinkish colored drainage noted., +BS EXT: No edema. 2+ DP, No rashes NEURO: Nonfocal - VTE Documentation of Mechanical Device: Intermittent pneumatic compression device
[2017-01-24] MEDS: Sennosides/Docusate Sodium TABLET PO SCH (13:09)
[2017-01-24 14:17] VITALS: BP 136/88
--- NOTE | 2017-01-24 15:36 | Physician Discharge Referral ---
- Diagnosis (1) Symptomatic cholelithiasis Status: Resolved (2) Tobacco abuse Priority: Primary Status: Acute (3) HTN (hypertension) Priority: Secondary Status: Chronic (4) DMII (diabetes mellitus, type 2) Priority: Secondary Status: Acute - Respiratory Orders Smoking Cessation: Smoking cessation has been advised. For more information, call the [place] Tobacco Quit Line at 7-414-NLHA-NOW. - Services Needed Following services are medically necessary services: Home Health Aide - Transfer Medications Prescriptions: Ondansetron ODT [Zofran ODT] 4 mg SL Q4HR #15 tab.rapdis Clindamycin [Cleocin] 150 mg PO Q6HR #40 capsule OxyCODONE/APAP 5/325 [Percocet 5/325 MG] 1 each PO Q6HR PRN #28 tablet PRN Reason: Pain Ibuprofen [Motrin] 800 mg PO Q8HR #42 tablet Docusate [Colace] 100 mg PO BID #30 capsule Fluconazole [Diflucan] 100 mg PO DAILY #2 tablet LORazepam [Ativan] 0.5 mg PO DAILY PRN #7 tablet PRN Reason: Anxiety Home Medications: Atorvastatin [Lipitor] 40 mg PO HS 01/22/17 [History] Glimepiride [Amaryl] 4 mg PO BID 01/22/17 [History] Lisinopril-HCTZ 20-12.5 [Prinzide 20-12.5] 1 each PO DAILY 01/22/17 [History] Sertraline [Zoloft] 100 mg PO DAILY 01/22/17 [History] metFORMIN [Glucophage] 1,000 mg PO BIDWM 01/22/17 [History] Clindamycin [Cleocin] 150 mg PO Q6HR #40 capsule 01/23/17 [Rx] Docusate [Colace] 100 mg PO BID #30 capsule 01/23/17 [Rx] Ibuprofen [Motrin] 800 mg PO Q8HR #42 tablet 01/23/17 [Rx] Ondansetron ODT [Zofran ODT] 4 mg SL Q4HR #15 tab.rapdis 01/23/17 [Rx] OxyCODONE/APAP 5/325 [Percocet 5/325 MG] 1 each PO Q6HR PRN #28 tablet 01/23/17 [Rx] Fluconazole [Diflucan] 100 mg PO DAILY #2 tablet 01/24/17 [Rx] LORazepam [Ativan] 0.5 mg PO DAILY PRN #7 tablet 01/24/17 [Rx] Allergies/Adverse Reactions: 3 Allergy/AdvReac Type Severity Reaction Status Date / Time Penicillins AdvReac Rash Verified 01/21/17 18:44 Certification: Further, I certify that my clinical findings support that this patient is homebound (i.e. absences from home require considerable and taxing effort and are for medical reasons or moravian services or infrequently or short duration when for other reasons) because: Homebound Reason: Patient requires assistance of a person or device to safely leave home (LOREN care) Attestation: My signature below is to certify that this patient is under my care and that I, or nurse practitioner, or a physician's circulation assistant working with me, has a face-to -face encounter with this patient.
[2017-01-24] MEDS: Ondansetron 4 MG/2 ML VIAL IVP PRN (16:20)
[2017-01-24] MEDS ORDERED: FLUBLOK QUAD 17/18 (18YR UP)/PF 0.5 ML SYRINGE IM ONE (17:38)
[2017-01-24] MEDS ORDERED: FLUARIX QUAD 2017-18 36MOS UP/PF 0.5 ML SYRINGE IM ONE (18:22)
== END 2017-01-24 18:49 | disposition home or self-care (01) | DRG 417 ==
LOC: EMEROO 18:31 → 3ANU 18:31
PROVIDERS: ADMIT Internal Medicine; ATTEND Internal Medicine